=== PATIENT | male | born 1950 | race American Indian/Alaskan Native ===

== ENCOUNTER 2021-12-15 07:21 | Emergency (ER) | payer SELFPAY ==
[2021-12-15 07:31] VITALS: BP 157/87
== END 2021-12-16 11:09 | disposition left against medical advice (07) ==
LOC: ED 07:21
DX: Z00.00 Encounter for general adult medical examination without abnormal findings (principal); Z53.21 Procedure and treatment not carried out due to patient leaving prior to being seen by health care provider